=== PATIENT | male | born 1950 | race Caucasian/White ===

== ENCOUNTER 2020-08-10 13:57 | Outpatient (CLI) | payer MEDICARE, SELFPAY | END 2020-08-10 13:58 | disposition home or self-care (01) | LOC: ANHCOVIDVC 13:57 | PROVIDERS: PCP Family Medicine | DX: Z23 Encounter for immunization (principal) | CPT/HCPCS: 0001A; 91300 ==

== ENCOUNTER 2020-08-31 14:06 | Outpatient (CLI) | payer MEDICARE, SELFPAY | END 2020-08-31 14:07 | disposition home or self-care (01) | LOC: ANHCOVIDVC 14:06 | PROVIDERS: PCP Family Medicine | DX: Z23 Encounter for immunization (principal) | CPT/HCPCS: 0002A; 91300 ==